=== PATIENT | male | born 1940 | race Caucasian/White ===

== ENCOUNTER 2016-06-23 21:00 | Inpatient (IN) | payer MEDICARE, BC ==
[~2016-06-23] VITALS: Ht 177.8 cm; Wt 106.8 kg
--- NOTE | ~2016-06-23 | HP ---
PATIENT'S NAME: HANNAH RODRÍGUEZ [facility] AGE: 75 Y [address] ROOM: [address] [place], [place] [address] LOCATION: GPCU ADMIT DATE: 06/23/2016 History & Physical DISCHARGE DATE: FAMILY PHYSICIAN: PHYSICIAN, UNKNOWN ATTENDING PHYSICIAN: SAGAR MIRANDA DATE OF SERVICE: CHIEF COMPLAINT: Generalized weakness and deconditioning and failure to thrive as well as an [id number] right upper quadrant pain. HISTORY OF PRESENT ILLNESS: This is a 75-year-old male, who is transferred from the outside facility to here for higher level of care. The story is that the patient for over a year has been complaining of right upper quadrant pain and also has been complaining of worsening fatigue and generalized weakness and failure to thrive for a long time as well. He denies any constipation or diarrhea, and his stools sometimes turn dark, he says that is because he has been taking iron. The patient denies any dyspnea or cough or chest pain, and his complaint is that he has a poor appetite, and has been having weight loss that he could not tell me how many pounds as well as [id number] bilateral lower extremity edema, as well as worsening of the right upper quadrant abdominal pain. Because of all these problems, the patient was seen at the outside facility in [facility], where the patient had a CT abdomen and pelvis without IV contrast performed on June 23, 2016 and showed numerous lung nodules at the lung bases, suspect pulmonary metastasis. Liver is enlarged and mostly replaced with multiple low-density lesions, likely hepatic metastasis. Mild retroperitoneal adenopathy. Portions of the colon appeared thick walled, more focally in the cecum and the rectum, may be colitis. Subtle mass excluded, especially in the cecal region. Minimal ascites. Cholelithiasis. Gallbladder is contracted and thick walled. The patient's blood pressure was also found to be low in the high 90s with MAP in the mid 60s. The patient was given IV fluids bolus and the blood pressure stayed in the low 100s, MAP in the high 60s, and the patient was sent over here for higher level of care. REVIEW OF SYSTEMS: As mentioned in the history of present illness. All other systems reviewed and negative except those mentioned in the history of present illness. PAST MEDICAL HISTORY: 1. Paroxysmal atrial fibrillation, on Coumadin. 2. Reported history of congestive heart failure, I am not quite sure which type, there is no echo and the patient does not know. PATIENT'S NAME: HANNAH RODRÍGUEZ [facility] AGE: 75 Y [address] ROOM: [id number] [place], [place] [address] [facility] ADMIT DATE: 06/23/2016 History & Physical DISCHARGE DATE: FAMILY PHYSICIAN: PHYSICIAN, UNKNOWN ATTENDING PHYSICIAN: SAGAR MIRANDA 3. Depression. 4. Diabetes type 2. 5. Diabetic peripheral neuropathy. 6. Osteoarthritis. 7. Hyperlipidemia. 8. Hypertension. 9. Hypothyroidism. HOME MEDICATIONS: 1. Famotidine 20 mg p.o. b.i.d. 2. Ferrous sulfate 325 mg p.o. daily. 3. Glucosamine and chondroitin 1 capsule p.o. b.i.d. 4. Levothyroxine 75 mcg p.o. daily. 5. Metformin 500 mg p.o. b.i.d. 6. Metolazone 2.5 mg p.o. daily. 7. Multivitamin 1 tablet p.o. daily. 8. Tylenol 500 mg p.o. b.i.d. 9. Tylenol 500 mg p.o. every 6 hours p.r.n. for pain or fever. 10. Coreg 25 mg p.o. b.i.d. 11. Vitamin D 400 units p.o. daily. 12. Vitamin B12 125 mg p.o. daily. 13. Digoxin 125 mcg p.o. daily. 14. Benadryl 25 mg p.o. every night at bedtime p.r.n. for insomnia. 15. Aldactone 25 mg p.o. daily on Monday, Monday, Monday, and Monday. 16. Torsemide 60 mg p.o. every evening. 17. Torsemide 80 mg p.o. every morning. 18. Vitamin C 1 capsule p.o. daily. 19. Coumadin 1 mg p.o. every night at bedtime. Last dose was on June 22, 2016, according to the chart. SOCIAL HISTORY: The patient denies any alcohol or illegal drug or cigarette smoking in the past. PAST SURGICAL HISTORY: The patient denies any surgical history in the past. FAMILY HISTORY: The patient's father from oral cancer from cigarette smoking at advanced age. Mother also from cancer, but he could not remember which type. PHYSICAL EXAMINATION: VITAL SIGNS: At the time of my dictation, temperature 98, heart rate 90, blood pressure 98/60, MAP 68, respiration 14, and saturation 98% on room air. PATIENT'S NAME: HANNAH RODRÍGUEZ [facility] AGE: 75 Y [address] ROOM: [place] [address] [facility] ADMIT DATE: 06/23/2016 History & Physical DISCHARGE DATE: FAMILY PHYSICIAN: PHYSICIAN, UNKNOWN ATTENDING PHYSICIAN: SAGAR MIRANDA Pain 3/10 in the right upper quadrant. GENERAL APPEARANCE: Alert and oriented x3, in no acute distress. HEENT: Pupils equally round and reactive to light. Extraocular muscles intact. Anicteric sclerae. He has some dry blood in both nasal nares. He said that he likes to pick his nose. No active epistaxis. Dry oral mucosa. No oral thrush. NECK: No JVD. No cervical lymphadenopathy. No neck stiffness. RESPIRATORY: Clear. CARDIOVASCULAR: Regular rate and rhythm. Normal S1, S2. No murmurs, no rubs, no gallops. ABDOMEN: Soft. I could feel several palpable masses in the right upper quadrant area, in the liver area, likely from the metastasis. Bowel sounds are present. Mildly tender to palpation in the right upper quadrant. Interestingly, there is no tenderness in the left lower quadrant. No abdominal rigidity. No rebound tenderness. EXTREMITIES: +2 bilateral pitting edema in both lower extremities. He said this is worse than his baseline edema. SKIN: No ulcer. No rash. No cyanosis. NEUROLOGICAL: Grossly nonfocal. MUSCULOSKELETAL: No joint pain, no muscle pain. Range of motion intact. LABORATORY DATA: White blood cells 13.5, hemoglobin 8.7, hematocrit 30, MCV 74.3, platelets 267. Glucose 108, BUN 85, creatinine 1.4, sodium 135, potassium 3.5, chloride 95, CO2 of 22, calcium 7.6, total protein 6.4, albumin 2.0, AST 216, ALT 71, alkaline phosphatase 670, total bilirubin 2.4, direct bilirubin 1.8, phosphorus 4.7, magnesium 1.9, anion gap 21.5, globulin 4.4, GFR 49. INR 4.2, PTT 58. Procalcitonin 2.54. MICROBIOLOGY STUDIES: Blood culture 2 sets obtained and are pending. Urine culture ordered but not yet collected. IMAGING STUDIES: CT abdomen and pelvis without contrast was done at the outside facility on admission, refer to the history of present illness for details. EKG performed at an outside facility on admission showed sinus rhythm, heart rate at 83 beats per minute with occasional PVC, no acute ischemic findings. ASSESSMENT AND PLAN: 1. Severe sepsis, likely secondary to colitis in the cecum or in the rectum: The patient is having severe sepsis with high procalcitonin, leukocytosis, and hypotension, as well as elevated procalcitonin. The source here likely is from the colitis based on the CT abdomen and PATIENT'S NAME: HANNAH RODRÍGUEZ [facility] AGE: 75 Y [address] ROOM: [place] [address] [facility] ADMIT DATE: 06/23/2016 History & Physical DISCHARGE DATE: FAMILY PHYSICIAN: PHYSICIAN, UNKNOWN ATTENDING PHYSICIAN: SAGAR MIRANDA pelvis. CT abdomen and pelvis mentioned about possible colitis in the rectum or in the cecum. On examination, he denies any pain in the right lower quadrant. For now, I will give him IV bolus normal saline over 1 hour and check the blood pressure again to see if he is still hypotensive with MAP less than 65, and I will bolus him more as necessary. His lungs are clear. He is 99% on room air. I am not worried about the volume overload at this point. Severe sepsis with hypotension takes more importance in this case. Antibiotic choice: I will cover him widely with vancomycin as well as Zosyn and also Flagyl. This is a broad coverage given that I want to rule out bacteremia; therefore, I will leave the vancomycin on board, and the Zosyn and also the Flagyl will be the coverage for the colitis and also for bacteremia. UA and urine culture are pending. I will use the severe sepsis protocol by checking all the vital signs on admission and also in 6 hours followed by the severe sepsis protocol. I will consult Gastroenterology in the morning for the possibility of this colitis and also because of the questionable mass in the cecal region that could be colon cancer as the primary source of cancer that causes metastasis to the liver and also to the lungs. I will also consult Hematology-Oncology in the morning for the possibility of primary colon cancer with metastasis to the liver and also to the lungs. The patient will require a CT with contrast of the chest as well as part of the stiles CT in every cancer patient. However, his kidney function is not the best right now with acute kidney injury from the severe sepsis and decreased oral intake. In this case, I will actually change the vancomycin to IV linezolid to not worsen the kidney function, and I will check the renal panel in the morning, and eventually, the patient will require a CT of the chest to better visualize the location and the details of the pulmonary metastasis. The patient will get the p.o. Florastor to prevent Clostridium difficile. Check labs in the morning again. Further plan depends on clinical course. If his condition worsens and require pressor, he will go to ICU. 2. Regarding his history of paroxysmal atrial fibrillation: His INR on admission 4.2. No obvious signs or finding of a bleeding. He is anemic, but this could be from the colon cancer, which of course will give gastrointestinal bleeding. Given that the patient is not actively bleeding, there is no urgency to call GI right now. I am not going to check the fecal occult stool test given that he has a colon mass and likely he will become positive. I will get a GI consult in the morning. I will do a type and screen just in case he would require a transfusion. I will also check iron panel in the morning as well. He is in sinus rhythm right now. I will check 1 set of troponin, CK, CK-MB, and proBNP in the morning. He is also on digoxin. I will get a level in the morning as well. For the diagnosis of colon mass, his INR is 4.2. I will give him 1 dose of p.o. vitamin K 5 mg in case the patient would require a mass biopsy for the diagnosis. Check INR again later today. PATIENT'S NAME: HANNAH RODRÍGUEZ [facility] AGE: 75 Y [address] ROOM: [id number] [place], [place] [address] LOCATION: GPCU ADMIT DATE: 06/23/2016 History & Physical DISCHARGE DATE: FAMILY PHYSICIAN: PHYSICIAN, UNKNOWN ATTENDING PHYSICIAN: SAGAR MIRANDA 3. Regarding his history of congestive heart failure: I am not quite sure which type, there is no echo on file to know. The patient also does not know the details. He is not in heart failure right now. If necessary, echo could be obtained, but at this moment I do not think it is necessary unless he has bacteremia from Gram-positive cocci. 4. Regarding his diabetes type 2: I will give him the sliding scale insulin, NovoLog, before meals and at bedtime with mild dose and titrate as necessary. 5. Acute kidney injury: Likely, it is acute kidney injury; however, I do not have any baseline to compare. In the setting of a severe sepsis and hypotension, likely it is acute kidney injury. Also, he has a poor appetite. He is getting IV fluids bolus right now. I will check the kidney function again in the morning. UA and urine culture are pending. 6. Hypertension: The patient is in severe sepsis with hypotension. Of course, I will hold the blood pressure medication for now. 7. Code status: He is DNR, DNI. 8. Failure to thrive: PT, OT, and also consult Nutrition. 9. Depending on his clinical course, further plan will be formulated. 10. Deep vein thrombosis prophylaxis: He is on compression devices. INR is already supratherapeutic. Time spent in care on the day of admission 60 minutes including chart review, examining and interviewing the patient, addressing all the questions and concerns of the patient, and going over the plan of care with the nurses and also with the patient. Further plan will be decided by the incoming hospitalist who will be taking over the care starting 06/24/16 8AM. SAGAR MIRANDA MD CC/modl /[id number] D: [id number] T: [id number] HISTORY & PHYSICAL
--- NOTE | ~2016-06-23 | CON ---
PATIENT'S NAME: HANNAH RINALDI [facility] AGE: 75 Y [address] ROOM: [place] [address] LOCATION: GICU ADMIT DATE: 06/23/2016 Consultation DISCHARGE DATE: FAMILY PHYSICIAN: Daniel Rice MD ATTENDING PHYSICIAN: SAGAR MIRANDA DATE OF CONSULTATION: 06/24/2016 REFERRING PHYSICIAN: MARITZA LEI MD Dear Dr. Meneses: Thank you for asking me to see Mr. Rinaldi who is a 75-year-old male patient who was recently transferred from [facility]. He has been getting progressively weak for the past 2 years. He has lost almost 25 pounds in weight during that time and has nonspecific discomfort in his abdomen that has been getting progressively worse as well. He was found to have metastatic lung cancer as well as metastatic liver cancer, and primary is unclear and likely to be gastrointestinal at this time. The reason for consultation is he had hypotension, and the concern is whether this is cardiac. He has longstanding history of atrial fibrillation with controlled ventricular response, on Coumadin therapy, as well as history of congestive heart failure. He does not have any significant valvular abnormalities that we know of. There is no prior history of MO. His EKG now does not show any evidence of acute MO. He has not had any chest pains. The patient has history of hypertension, type 2 diabetes, and hyperlipidemia. There is no family history of premature coronary artery disease. He is a nonsmoker. MEDICATIONS: His current list of medications on admission included: 1. Tylenol. 2. Coreg 25 b.i.d. 3. Multivitamin. 4. Vitamin D3. 5. Digoxin 0.125 mg once a day. 6. Famotidine. 7. Ferrous sulfate. 8. Levothyroxine 75 mcg a day. 9. Metformin 500 mg b.i.d. 10. Metolazone 2.5 mg a day. 11. Vitamin C. PATIENT'S NAME: AN[facility] Keli [facility] AGE: 75 Y [address] ROOM: [place] [address] LOCATION: GICU ADMIT DATE: 06/23/2016 Consultation DISCHARGE DATE: FAMILY PHYSICIAN: Daniel Rice MD ATTENDING PHYSICIAN: SAGAR MIRANDA 12. Torsemide 60 mg a day in the morning and 80 mg a day in the afternoon. 13. Cyanocobalamin. 14. Aldactone 25 mg a day. 15. Diphenhydramine. 16. Warfarin 1 mg at bedtime. ALLERGIES: AVOCADO AND CUCUMBER. NO KNOWN DRUG ALLERGIES. PAST MEDICAL HISTORY: 1. History of depression. 2. Diabetic peripheral neuropathy. 3. Osteoarthritis. 4. Hypothyroidism. 5. History of right knee surgery. SOCIAL HISTORY: The patient denies abusing alcohol or tobacco. He has always lived alone. He has been since the age of about 58 or so. He has been losing weight, and his appetite has been poor. FAMILY HISTORY: No premature coronary artery disease. REVIEW OF SYSTEMS: 1. Generalized discomfort. 2. Arthritis. PHYSICAL EXAMINATION: VITAL SIGNS: The patient's blood pressure is in the 80s in the left upper extremity, and it was 106/70 in the right upper extremity. Heart rate was in the 60s and irregular, respirations are 18, and oxygen saturation is 98%. HEENT: Normal. NECK: Supple with no JVD, thyromegaly, lymphadenopathy, or carotid bruit. CARDIAC: PMI is not well located. First and second heart sounds are irregular. There are no added sounds or murmurs. CHEST: Diminished breath sounds in both bases. ABDOMEN: Soft and nontender. EXTREMITIES. 2+ edema. CENTRAL NERVOUS SYSTEM: Grossly intact. ASSESSMENT: 1. Based on the echocardiogram, it is very unlikely that he has cardiogenic shock. 2. Possibly septic shock or shock related to tumor-related tissue PATIENT'S NAME: HANNAH RINALDI [facility] AGE: 75 Y [address] ROOM: [id number] [place] [id number] LOCATION: [facility] ADMIT DATE: 06/23/2016 Consultation DISCHARGE DATE: FAMILY PHYSICIAN: Daniel Rice MD ATTENDING PHYSICIAN: SAGAR MIRANDA destruction. RECOMMENDATIONS: 1. We will try to bring his albumin up a little bit as his albumin is 1.9. 2. Continue IV fluids for resuscitation. 3. Measure blood pressures always in the right upper extremity. 4. Other supportive measures including blood transfusions as needed. 5. Keep mean arterial pressure greater than 65. We will plan on following up in the morning based on how he comes along. In the meantime, we will check his D-dimer and BMP again in the morning. Again, I appreciate this opportunity to participate in the care of Mr. Rinaldi. MD LAUREL NUGENT/gracie /[id number] d: 06/25/16 1124 t: 07/05/16 1234, CONSULTATION REPORT
--- NOTE | ~2016-06-23 | CON ---
PATIENT'S NAME: HANNAH RODRÍGUEZ [facility] AGE: 75 Y [address] ROOM: [place] [address] LOCATION: GPCU ADMIT DATE: 06/23/2016 Consultation DISCHARGE DATE: FAMILY PHYSICIAN: Daniel Rice MD ATTENDING PHYSICIAN: SAGAR MIRANDA DATE OF CONSULTATION: 06/27/2016 REFERRING PHYSICIAN: MARITZA LEI MD LOCATION: [place] [address]. REFERRING PHYSICIAN: Yaya Ferreira MD This is a palliative care referral for goals of care and end-of-life discussion. HISTORY OF PRESENT ILLNESS: This 75-year-old male was transferred from the [facility] with increasing weakness, deconditioning, failure to thrive, and right upper quadrant pain. He had been complaining of right upper quadrant pain, worsening fatigue and weakness, decreased appetite, and a weight loss of about 23 to 25 pounds. He went to the [facility] where he had a CT of the abdomen and pelvis done on June 23, 2016, which showed numerous lung nodules at the lung bases, suspect with pulmonary metastasis. Liver was enlarged and mostly replaced with multiple low-density lesions, likely hepatic metastasis and mild retroperitoneal adenopathy. Portions of the colon appeared thick-walled, more focally in the cecum and rectum, may be colitis, with subtle mass excluded, especially in the cecal region. Currently, the patient denies any abdominal pain. No nausea or vomiting. Very poor appetite, having difficulty eating and swallowing. Had a speech evaluation and was able to take in thickened liquids. Just no appetite. Gets full easily. Denies any shortness of breath. Fatigues very easily. Falls asleep easily in conversation. PAST MEDICAL HISTORY: Paroxysmal atrial fibrillation, on Coumadin; history of congestive heart failure; depression; diabetes, type 2; diabetic peripheral neuropathy; osteoarthritis; hyperlipidemia; hypertension; and hypothyroidism. HOME MEDICATIONS: 1. Famotidine 20 mg b.i.d. 2. Ferrous sulfate 325 mg daily. 3. Glucosamine and chondroitin one capsule b.i.d. 4. Levothyroxine 75 mcg daily. PATIENT'S NAME: HANNAH RODRÍGUEZ [facility] AGE: 75 Y [address] ROOM: [place] [address] LOCATION: GPCU ADMIT DATE: 06/23/2016 Consultation DISCHARGE DATE: FAMILY PHYSICIAN: Daniel Rice MD ATTENDING PHYSICIAN: SAGAR MIRANDA 5. Metformin 500 mg b.i.d. 6. Metolazone 2.5 mg daily. 7. Multivitamin daily. 8. Tylenol 500 mg b.i.d. and 500 mg p.o. every 6 hours p.r.n. pain or fever. 9. Coreg 20 mg p.o. b.i.d. 10. Vitamin D 400 units daily. 11. Vitamin B12 at 100 mg p.o. daily. 12. Digoxin 125 mcg daily. 13. Benadryl 25 mg every night at bedtime p.r.n. insomnia. 14. Aldactone 25 mg on Monday, Monday, Monday, and Monday. 15. Torsemide 60 mg p.o. every evening and 80 mg every a.m. 16. Vitamin C capsule daily. 17. Coumadin 1 mg every night at bedtime. ALLERGIES: NO MEDICATION ALLERGIES. ALLERGIC TO AVOCADO AND CUCUMBER. SOCIAL HISTORY: He was for about 10 years and is . No children. He has 3 sisters; 2 live in [place], 1 lives in [place]. Had been living at home previously and was recently admitted to the [facility] in [place] due to deconditioning and not being able to walk. He is a retired [employer]. No alcohol or smoking history. FAMILY HISTORY: Mother at the age of 47 from cancer. Father had lip cancer, was a smoker, and had heart disease. PAST SURGICAL HISTORY: Right knee surgery in 1999. REVIEW OF SYSTEMS: A 10-point review of systems was done and is negative except as mentioned in the HPI and listed below. GASTROINTESTINAL: Weight loss of 23 to 25 pounds. Poor appetite. Difficulty swallowing. He has had diarrhea since CT scan. He is currently wearing a Depend. PSYCHIATRIC: No history of depression. Positive fatigue and loss of energy. Decreased interest in most activities due to fatigue. He is worried about finances. PHYSICAL EXAMINATION: GENERAL: This is a frail, 75-year-old male. VITAL SIGNS: Temperature 96.5, pulse 84, respirations 16, blood pressure 118/57, and O2 saturation is 96% on 1 L. He is 5 feet 10 inches and weighs PATIENT'S NAME: VODEHNAL, HANNAH D [facility] AGE: 75 Y [address] ROOM: [id number] [place], [place] [address] LOCATION: GPCU ADMIT DATE: 06/23/2016 Consultation DISCHARGE DATE: FAMILY PHYSICIAN: Daniel Rice MD ATTENDING PHYSICIAN: SAGAR MIRANDA 235 pounds with a BMI of 31.0. GENERAL: Alert and oriented. Fatigues easily. Falls asleep during conversation, but does arouse. In no acute distress. SKIN: Warm and dry. Color pale. HEENT: Head: Normocephalic, atraumatic. Sclerae are nonicteric. Conjunctivae are pale, pink. Mouth is pink and moist without exudate. No lesions or white patches. LYMPHATIC: No cervical adenopathy or thyromegaly. RESPIRATORY: Clear and diminished bilaterally. Breath sounds even and regular. CARDIAC: S1 and S2, without murmurs or bruits. 3 to 4+ edema noted in all extremities, non-weeping. NEUROLOGIC: Grossly intact. No focal deficits. MUSCULOSKELETAL: Appropriate range of motion. Decreased strength in upper and lower extremities. EXTREMITIES: No cyanosis or deformities. Palliative Performance Scale is 20%, totally bedbound, unable to do most activities, total care, intake is minimal to sips, conscious level is full with periods of drowsiness. LABORATORY DATA: Sodium 143, potassium 3.0, BUN 39, and creatinine 0.9. Albumin 2.6. Alkaline phosphatase is 308, AST is 169, and ALT is 52. GFR is greater than 60. LDH is 2004. ProBNP is 4212. White count 19.5, hemoglobin 8.2, hematocrit 29.6, and 221,000 platelets. UA showed leukocytes of 100 and wbc's 20 to 50, but might of UA showed no growth. C diff was negative on 06/27. PLAN: 1. Discussion of condition and the patient's knowledge of tests. Met with the patient, his sister Yvette Acuna, and her . The patient has a fair understanding of overall condition, lesions in lungs and liver widely metastatic. They are awaiting path results on biopsy from colon. 2. Discussed the patient's overall condition, not eating, weight loss, dysphagia, overall nutritional status, and decreased strength. Answered questions and concerns on condition and possible options. GOALS OF CARE: 1. The patient and sister would like to talk with the oncologist on path results and possible options relating to the patient's condition, if chemotherapy is an option or not. 2. Go back joiner to home in [place]. Answered questions and concerns on fpc and possibly taking closer to [place] where 2 sisters live. The patient wants to go back to work. Encouraged them to keep a room at [facility]pc. PATIENT'S NAME: HANNAH RODRÍGUEZ [facility] AGE: 75 Y [address] ROOM: [id number] [place] [id number] LOCATION: [facility] ADMIT DATE: 06/23/2016 Consultation DISCHARGE DATE: FAMILY PHYSICIAN: Daniel Rice MD ATTENDING PHYSICIAN: SAGAR MIRANDA 3. Discuss worries and concerns about finances and fpc. 4. Code status and advance directive. The patient is currently a do not resuscitate/do not intubate. Sister Yvette and the patient state they do have an advance directive at the charge entry's office. She will try to get us a copy from the charge entry's office. Gave fax number to [facility] nursing station number. We will continue to support the patient and family, answering questions on condition, hospice, and goals of care. Total time was 60 minutes. Thank you for allowing me to assist this patient and family. ABI DELGADO NP FOR MD NORMAN BEST/gracie /[id number] d: 06/28/16 1354 t: 07/05/16 1202, CONSULTATION REPORT
--- NOTE | ~2016-06-23 | ECHO ---
Transthoracic Echocardiography Report (TTE) Demographics Patient Name HANNAH RODRÍGUEZ Date of Study 06/24/2016 Patient Number [id number] Visit Number [id number] Date of 1940 Room Number G6213 Gender Male Number Age 75 year(s) Referring Zehra Holloway Chief Wharfinger Jelena MARCIAL, RDCS Physician MD Umm Sanchez MD Physician Interpreting Zehra Holloway MD Banking Manager Physician Supervising Ordering Zhera Holloway MD, MD/MLP Physician Nurse Stress Copy Camera Operator Conclusions Contractility Score Summary Normal Left Ventricular contractility was noted. Summary The estimated left ventricular ejection fraction is 60-65%. Mild to moderate concentric left ventricular hypertrophy with normal EF, WM and internal dimensions. Moderately dilated right ventricle. The left atrium is moderately dilated. The right atrium is moderatly dilated. Moderate mitral regurgitation by color Doppler. There is mild aortic regurgitation by color Doppler. Moderate-severe tricuspid regurgitation by color Doppler. There is moderate pulmonary hypertension. The pulmonary pressure (RVSP) is 50 mmHg. Procedure Type of Study TTE procedure:2D Echocardiogram, M-Mode, Doppler , Color Doppler. Procedure Date Date: 06/24/2016 Start: 06:58 PM Study Location: Inpatient Portable Technical Quality: Adequate visualization Indications:Bradycardia. Appropriate Use Criteria: 9 Patient Status: STAT HR: 49 bpm BP: 105/57 mmHg M-Mode/2D Measurements LV Diastolic Dimension: 4.14 cm LV Systolic Dimension: 2.93 cm LV Septum Diastolic: 1.33 cm LV PW Diastolic: 1.26 cm AO Root Dimension: 2.6 cm Cardiac Output: 2.66 l/min AV Cusp Separation: 1.1 cm RV Diastolic Dimension: 3.01 cm LA volume: 71 ml LVOT: 2.2 cm RV Base: 3.49 cm LVOT VTI: 14.3 cm RV Mid: 3.61 cm LV Stroke volume: 54.33 ml TAPSE: 2.11 cm TDI-S': 17 cm/s Doppler Measurements AV Peak Velocity: 2.1 m/s MV Peak E-Wave: 1.47 m/s AV Peak Gradient: 17.64 mmHg MV Peak A-Wave: 0.29 m/s AV Mean Gradient: 11 mmHg MV E/A Ratio: 5.16 LVOT Peak Velocity: 0.72 m/s MV P1/2t: 88 msec AV P1/2t: 881 msec TR Gradient:39.69 mmHg PV Peak Velocity: 0.89 m/s Estimated RAP:10 mmHg PV Peak Gradient: 3.19 mmHg Estimated RVSP: 50 mmHg Estimated PASP: 49.69 mmHg E' Septal Velocity: 0.08 m/s A' Lateral Velocity: 0.05 m/s E' Lateral Velocity: 0.12 m/s Findings Left Ventricle Mild to moderate concentric left ventricular hypertrophy with normal EF ,WM and internal dimensions. Right Ventricle Moderately dilated right ventricle. Left Atrium The left atrium is moderately dilated. Right Atrium The right atrium is moderately dilated. Mitral Valve Moderate to severe mitral annular calcification. Moderate mitral regurgitation by color Doppler. Aortic Valve The aortic valve is moderately sclerotic. There is mild aortic regurgitation by color Doppler. Tricuspid Valve Moderate-severe tricuspid regurgitation by color Doppler. There is moderate pulmonary hypertension. The pulmonary pressure (RVSP) is 50 mmHg. Pulmonic Valve Trivial pulmonic valve regurgitation by color Doppler. Pericardial Effusion No evidence of pericardial effusion. Pleural Effusion No evidence of pleural effusion. Contractility Score LV regional wall motion:(0-Non visualized 1-Normal 2-Hypokinesis 3-Akinesis 4-Dyskinesis 5-Aneurysm) Signature dtt: Amie Shahid dtd: 06/24/16 1858 Physician Self Edit
--- NOTE | ~2016-06-23 | DS ---
PATIENT'S NAME: HANNAH RODRÍGUEZ [facility] AGE: 75 Y [address] ROOM: [place] [address] LOCATION: GPCU ADMIT DATE: 06/23/2016 Discharge Summary DISCHARGE DATE: 06/30/2016 FAMILY PHYSICIAN: Daniel Rice MD ATTENDING PHYSICIAN: Cole Spann PRIMARY DIAGNOSES: 1. Severe sepsis. 2. 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 3. Acute colitis. 4. Acute hypoxic respiratory failure. 5. Paroxysmal atrial fibrillation on long-term anticoagulation with warfarin. 6. Anasarca. 7. Severe protein-calorie malnutrition. 8. Right colon mass, partially obstructive. 9. Cholelithiasis. 10. Diabetes mellitus type 2. 11. Gastroesophageal reflux disease. 12. Coronary artery disease. OPERATIONS/PROCEDURES: CT scan of the chest per PE protocol was performed on 06/25/2016 demonstrating no evidence for pulmonary embolism, but moderate sized bilateral pleural effusions with pulmonary metastatic disease and extensive hepatic metastatic disease noted. Gallstones noted within the gallbladder. HISTORY OF PRESENTING ILLNESS AND REASON FOR ADMISSION: Please refer to the H and P dictated on 06/23/2016. HOSPITAL COURSE: The patient was admitted to the hospital as noted above with a presumptive diagnosis of severe sepsis. He was suspected to have cecal mass based on a CT scan obtained at an outside facility. He was seen and evaluated by Gastroenterology and colonoscopy was recommended. This was performed with a partially obstructing mass. Biopsies were obtained. He was treated with broad-spectrum antibiotic therapy. Blood cultures remained negative over the course of his hospital stay. Clinically, his condition was quite poor from the outset. Based on the imaging findings and his clinical condition, it was felt that metastatic colon cancer was the most likely diagnosis. We did discuss preliminarily options for treatment. Oncology was consulted. He did receive continued supportive cares, but his oral intake was poor. PATIENT'S NAME: HANNAH RODRÍGUEZ [facility] AGE: 75 Y [address] ROOM: [place] [address] LOCATION: GPCU ADMIT DATE: 06/23/2016 Discharge Summary DISCHARGE DATE: 06/30/2016 FAMILY PHYSICIAN: Daniel Rice MD ATTENDING PHYSICIAN: Cole Spann Blood pressures were marginally well controlled and he did continue to receive some IV fluids and intermittent albumin infusions because of significant anasarca. Given the extent of metastases and his poor clinical condition, it was not thought that he would be a good candidate for surgery or any antineoplastic therapy. Eventually, biopsy results returned grade 2 adenocarcinoma of the colon. The case was reviewed once again with Oncology and as expected, it was felt that he was not a good candidate for antineoplastic therapy. Palliative Care was also involved and after some discussion with the patient and his sisters, who provided good social support, it was elected to pursue comfort cares primarily. On 06/30/2016, arrangements were made for him to be transferred to the transitional care unit for continued comfort cares and end-of-life management. DISCHARGE INSTRUCTIONS: Diet: As tolerated. Activity: As tolerated. MEDICATIONS: 1. Milk of magnesia 30 mL p.o. daily p.r.n. 2. Albuterol per nebulizer q.4 hours p.r.n. wheezing or dyspnea. 3. Compazine 25 mg p.r. q.12 hours p.r.n. nausea. 4. Morphine half to 1 mg IV or subcutaneous q.1 hour p.r.n. pain or air hunger and morphine 2.5 to 5 mg p.o. or sublingually with q.1 hour p.r.n. pain or air hunger. 5. Lorazepam 0.5 mg p.o. subcu or IV q.2 hours p.r.n. anxiety or restlessness. 6. Hyoscyamine 0.125 mg p.o. q.4 hours sublingually p.r.n. excess secretions. 7. Haldol 1 mg IV or subcu q.1 hour p.r.n. restlessness. 8. Dulcolax 10 mg p.r. daily p.r.n. 9. Atropine drops 1-2 drops sublingually q.4 hours p.r.n. secretions. 10. Acetaminophen 650 mg p.o. or p.r. q.4 hours p.r.n. pain or fever. FOLLOWUP: He will have continued followup on the transitional care unit by the hospitalist team as well as the palliative care team. CONDITION ON DISCHARGE: Poor. Total time spent on discharge process 45 minutes. MARCIE MELENDEZ MD PATIENT'S NAME: HANNAH RODRÍGUEZ [facility] AGE: 75 Y [address] ROOM: [place] [address] [facility] ADMIT DATE: 06/23/2016 Discharge Summary DISCHARGE DATE: 06/30/2016 FAMILY PHYSICIAN: Daniel Rice MD ATTENDING PHYSICIAN: Cole Spann/gracie /[id number] d: 07/01/16 025 t: 07/13/16 2144, DISCHARGE SUMMARY
--- NOTE | ~2016-06-23 | CON ---
PATIENT'S NAME: HANNAH RODRÍGUEZ [facility] AGE: 75 Y [address] ROOM: [address] [address] LOCATION: GPCU ADMIT DATE: 06/23/2016 Consultation DISCHARGE DATE: FAMILY PHYSICIAN: PHYSICIAN, UNKNOWN ATTENDING PHYSICIAN: SAGAR MIRANDA DATE OF CONSULTATION: 06/24/2016 REFERRING PHYSICIAN: MARITZA LEI MD HOSPITAL CONSULTATION REFERRING PROVIDER: Ole Meneses MD REASON FOR CONSULTATION: Liver lesion, suspected metastatic disease as well as a possible cecal mass. HISTORY OF PRESENT ILLNESS: This is a 75-year-old male, who was recently admitted with generalized weakness, deconditioning, and failure to thrive. The patient does state that over the past year, he has been having vague symptoms of right upper quadrant abdominal pain with worsening fatigue, generalized weakness, as well as weight loss, though unable to quantify the amount of weight loss. The patient also has had significant increase in bilateral lower extremity edema. The patient has also experienced deterioration over the past few months and presented to an outside facility where a CT abdomen and pelvis was completed on 06/23/2016. This did show numerous lung nodules, likely suspicious for pulmonary metastasis. Liver was enlarged with mostly low-density lesions likely hepatic metastasis, mild retroperitoneal adenopathy. The patient's colon also had portions that were thick walled, more focally in the cecum and the rectum suggestive for possible colitis versus cecal mass or region. The patient was also found to be hypotensive and was given IV fluids for stabilization and transferred to [facility] for higher level of care. The patient was seen and examined. He does state that he has had abdominal pain over the past year though cannot detail the characteristics. The patient denies any history of colonoscopy or upper endoscopy. He does complain of generalized weakness as well as noticeable swelling in his extremities; specifically, his bilateral lower extremities. The patient does state that he has had some weight loss though cannot quantify the amount of pounds that he has lost. The patient currently denies any chest pain, chest pressure, shortness of breath, fever, chills, or night sweats. PAST MEDICAL HISTORY: 1. Paroxysmal atrial fibrillation, on Coumadin. PATIENT'S NAME: HANNAH RODRÍGUEZ [facility] AGE: 75 Y [address] ROOM: [id number] [place] [id number] LOCATION: GPCU ADMIT DATE: 06/23/2016 Consultation DISCHARGE DATE: FAMILY PHYSICIAN: PHYSICIAN, UNKNOWN ATTENDING PHYSICIAN: SAGAR MIRANDA 2. History of congestive heart failure. 3. Depression. 4. Diabetes type 2. 5. Diabetic peripheral neuropathy. 6. Osteoarthritis. 7. Hyperlipidemia. 8. Hypertension. 9. Hypothyroidism. PAST SURGICAL HISTORY: 1. No history of upper endoscopy or colonoscopy. 2. He did have right knee surgery in 1999 per the medical records. SOCIAL HISTORY: The patient denies any alcohol, tobacco, or illicit drug use. FAMILY HISTORY: The patient's father from oral cancer. The patient's mother from unknown type of cancer as well. ALLERGIES: AVOCADO AND CUCUMBERS. NO MEDICATION ALLERGIES PER THE PATIENT'S RECOLLECTION. CURRENT MEDICATIONS: Please refer to the medication administration record. REVIEW OF SYSTEMS: A 10-point review of systems was completed. All were negative except for those identified in the history of present illness. PHYSICAL EXAMINATION: GENERAL: A 75-year-old male, lying in bed, who appears to be in no acute distress. VITAL SIGNS: Temperature is 97.7, pulse is 59, respirations of 20, blood pressure 94/54, and oxygen saturation is 98% on room air. SKIN: [place], warm, and dry. No jaundice. HEENT: Head is normocephalic and atraumatic. Pupils are equal, round, and reactive to light. Sclerae are clear. Nonicteric. Oral mucosa is pink and moist. No thyromegaly. NECK: Soft and supple. CARDIOVASCULAR: Regular. Normal S1 and S2. RESPIRATORY: Respirations are even and unlabored. LUNGS: Clear to auscultation. Slightly diminished in the bilateral lower lobes. PATIENT'S NAME: HANNAH RODRÍGUEZ [facility] AGE: 75 Y [address] ROOM: [address] [place] [id number] LOCATION: GPCU ADMIT DATE: 06/23/2016 Consultation DISCHARGE DATE: FAMILY PHYSICIAN: PHYSICIAN, UNKNOWN ATTENDING PHYSICIAN: SAGAR MIRANDA ABDOMEN: Soft, round, and nontender. Bowel sounds positive x4 quadrants. MUSCULOSKELETAL: No muscle weakness or atrophy. EXTREMITIES: No clubbing or cyanosis. 3+ pitting edema noted to bilateral lower extremities. NEUROLOGIC: Grossly nonfocal. LABORATORY DATA AND IMAGING STUDIES: Labs and Diagnostics: Lactate level on admission was 5.2 with a recheck today of 4.0. CPK of 149, troponin is less than 0.040. ProBNP was 3797. White blood cell count of 13.3, hemoglobin of 8.6, hematocrit is 29.0, and platelets of 295,000. Chemistry panel includes a glucose of 98, BUN of 81, creatinine of 1.2, sodium 137, potassium of 3.3, chloride of 97, CO2 of 25, and albumin of 1.9. AST of 224, ALT of 66, and alkaline phosphatase is 638. Total bilirubin of 2.3, direct bilirubin of 1.7, phosphorus of 4.7, and magnesium of 1.9. Hemoglobin A1c was 5.6, INR is 3.4, and prothrombin time of 39.9. Iron studies included iron of 15, TIBC is 136, percent saturation of 13, ferritin of 399.90, TSH was 2.53, and CK-MB was 2.8. CT scan as above. ASSESSMENT AND PLAN: Again this is a pleasant 75-year-old male, who was admitted with severe sepsis, congestive heart failure, failure to thrive, and deconditioning. The patient has been complaining of generalized abdominal discomfort with fatigue, weakness, and weight loss over the past year. CT scan showed likely metastatic pulmonary disease, hepatic disease, as well as some thickening in the patient's colon, specifically in the cecum and the rectum. At this time, this was discussed with Dr. Ole Meneses. We will go forth with recommendations for colonoscopy as the patient denies any history of colonoscopy. The patient was on Coumadin for atrial fibrillation, with the last dose being approximately 2 days ago. He has been given vitamin K, and will receive another dose of vitamin K. A recheck of his INR to be done in the morning prior to procedure as we will go forth with colonoscopy. Suprep will be given in preparation. Further recommendations to be given status post colonoscopy. Thank you for this consult and allowing us to participate in the care of this patient. We will continue to monitor, evaluate, and treat as appropriate. KEVIN ROPER, ASSISTANT [place] ATTORNEY FOR MARITZA LEI MD MMF/modl PATIENT'S NAME: HANNAH RODRÍGUEZ [facility] AGE: 75 Y [address] ROOM: [place] [address] LOCATION: [facility] ADMIT DATE: 06/23/2016 Consultation DISCHARGE DATE: FAMILY PHYSICIAN: PHYSICIAN, UNKNOWN ATTENDING PHYSICIAN: SAGAR MIRANDA /[id number] d: 06/24/16 1228 t: 07/21/16 0735, CONSULTATION REPORT
--- NOTE | ~2016-06-23 | CON ---
PATIENT'S NAME: HANNAH RINALDI [facility] AGE: 75 Y [address] ROOM: G6213 [place] [address] LOCATION: GICU ADMIT DATE: 06/23/2016 Consultation DISCHARGE DATE: FAMILY PHYSICIAN: Daniel Rice MD ATTENDING PHYSICIAN: SAGAR MIRANDA REFERRING PHYSICIAN: MARITZA LEI MD Consult to Dr. Miranda. Hannah Rinaldi is a 75-year-old man with probable metastatic cancer. The history of the present illness is from Mr. Rinaldi who is a discursive and prolix historian; from Mr. Rinaldi's sister and [id number]; the [facility] record; and the records forwarded by our colleagues in [place], [place]. The patient believes he was in his normal state of health until the spring. The patient lives alone in [place], [place]. He had retired for 2 years. The patient was unable to drive due to an injury to the right knee that he sustained in 2010, which caused "my knees were unable to lock up." The patient could walk 50-100 yards before he developed shortness of breath. He has used a walker since the injury in 2010. He had no formal or informal physical therapy, occupational therapy, or exercise program. The patient was capable of self-care. He could shower. He did all his cooking. He did light house work, but did not vacuum or do any lawn work. He generally had 1 brown stool a day. For a year, the patient has experienced low-grade abdominal pain in the right upper quadrant. The patient has felt a lump in this area. The patient finds it hard to lie on his right side. The pain has "stayed pretty level." The pain is not related to eating. The pain may be somewhat positional. The patient has taken some acetaminophen which has helped somewhat. The patient has been anorexic and has lost around 23 pounds. The patient also has noted he had some scybalous stools and fecal incontinence for 3-4 months. The patient has also had some functional urinary incontinence. On 05/23/2016, the patient reports that he "collapsed" and was taken to the hospital, hospitalized for 5 days, and then transferred to the rest home. His condition did not improve in the rest home. He developed insomnia over the last 10 days and has been very weak. The patient lost his voice. The usp informed our colleagues in [place] of his deteriorating condition and the patient was hospitalized in [place] and then transferred to [facility] today for evaluation. When the patient was admitted to [place], his INR was 4.8. The patient's BUN and creatinine were elevated and liver function tests were abnormal. Dede PATIENT'S NAME: HANNAH RINALDI [facility] AGE: 75 Y [address] ROOM: [id number] [place], [place] [address] LOCATION: [facility] ADMIT DATE: 06/23/2016 Consultation DISCHARGE DATE: FAMILY PHYSICIAN: Daniel Rice MD ATTENDING PHYSICIAN: SAGAR MIRANDA APRN-NP, elicited roughly the same history that he reported today. She noted the laboratory abnormalities. Chest x-ray and CAT scan of the abdomen and pelvis were performed. The chest x-ray revealed cardiomegaly. The CAT scan of the abdomen and pelvis revealed numerous lung nodules present in both lungs. There was arterial calcification within the aorta. There was a small pericardial effusion and mitral annular calcification. There was minimal gynecomastia. There was moderate spondylolysis with mild loss of thoracic and lumbar vertebral height. Osteoarthritis was seen at the hips and there was bony fusion across the sacroiliac joint. There were multiple low- density masses replacing much of the hepatic parenchyma. The gallbladder wall was contracted and calcified gallstones were present. There were multiple arterial calcifications in the abdominal wall vessels. The radiologist noted "thick-walled appearance of the rectum and other portions of the colon--- appears slightly thick walled, but also decompressed --- colitis consideration." There was a duodenal diverticulum. The radiologist also reported mild retroperitoneal lymphadenopathy. The colon wall appeared thick compatible with colitis, but the radiologist acknowledged that a small mass could not be excluded in the cecal region. The patient was referred to [facility] and admitted late yesterday. The urinalysis revealed 20-50 wbc's and 5-10 rbc's per high-power field. A procalcitonin was 2.54 ng/mL. [place] white count [place] [address] with 81% neutrophils and 7% lymphocytes, the hemoglobin was 8.6 g/dL, the MCV 74, and the platelets 295,000. The lactate level was 5.2 mEq/L. The potassium was 3.5 mEq/L. The BUN was 85 mg/dL and the creatinine was 1.4 mg/dL with an estimated EGFR of 49 mL/m. The albumin was 2 g/dL, the total bilirubin 2.4 mg/dL, the alkaline phosphatase 670 IU/L, the AST 216 IU/L, and the ALT 71 IU/L with the upper limits of normal being 78. The iron was 18 mcg/dL, the TIBC 136 mcg/dL, and the percentage saturation 13%. The ferritin was elevated at 399.9 ng/mL. TSH was 2.53 u/IU/mL. The proBNP was markedly elevated at 3797 pg/mL. One stool has been tested for Hemoccult and revealed no blood. The patient is seen in consultation. The patient has no personal history of cancer. The patient acknowledges for 2 years he had a black mole on his left shoulder which "comes and goes." This was present at a smallpox vaccine site. The nodule may have been 3/4 of an inch in size at the most and has regressed for about a year. This was not a scab. The patient sought no medical consultation for this. The patient's mother at 47 of pancreatic cancer and was not a tobacco smoker. A maternal aunt was cured at age 55 of breast cancer with bilateral mastectomy, a maternal aunt at age 60 of cancer of the breast, a maternal aunt at age 80 of cancer and type undetermined. His father developed lip PATIENT'S NAME: HANNAH RINALDI [facility] AGE: 75 Y [address] ROOM: [address] [address] LOCATION: [facility] ADMIT DATE: 06/23/2016 Consultation DISCHARGE DATE: FAMILY PHYSICIAN: Daniel Rice MD ATTENDING PHYSICIAN: SAGAR MIRANDA cancer related to sun and tobacco exposure. ACTIVE MEDICAL PROBLEMS, CHRONIC AND DIAGNOSED: 1. Cholelithiasis. 2. Paroxysmal atrial fibrillation noted in 2004. This was converted with electroshock to a normal sinus rhythm and he has apparently been on warfarin since that time. 3. "Congestive heart failure" noted in 2004 and treated since that time. 4. Depression. 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 5. Type 2 diabetes mellitus. It appears this was 1st noted in 2010, but may have resolved with diet and weight loss. The patient has been on no medications for this. The patient's blood sugars were checked at the office and at home if there was a question of a diabetic peripheral neuropathy. 6. 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 The patient has had intraarticular steroids administered to the elbow. 7. Hyperlipidemia. 8. Mild aortic stenosis, aortic regurgitation, and cltr-ol-fvspcvde mitral stenosis on echocardiogram. 9. Essential arterial hypertension. This has not been labile or associated with end-organ damage. 10. Ijep-hu-kvqmpkpu pulmonary hypertension. 11. Hypothyroidism. The patient is unable to recall when or how this was documented. This is listed as a medical problem and he is on levothyroxine sodium. 12. GERD/acid peptic disease. The patient denies this is a problem. He is on an H2 antagonist, but this may be new since he was hospitalized. 13. Atherosclerotic vascular disease with arterial calcifications in the thoracic and abdominal aorta. 14. Duodenal diverticulosis. 15. Subjective decreased auditory acuity. 16. Allergic rhinitis, troublesome in the fall. The patient tries to avoid allergens. 17. (?) Autism spectrum disorder?-? Asperger's syndrome(?). The patient does not respond to social cues as expected. 18. Class I obesity. On 06/23/2016, the BMI 31.1 kg/m2. ACUTE MEDICAL ILLNESSES (RESOLVED), PAST SURGERIES, INJURIES: 1. 1963-incision and drainage of a left arm abscess. 2. 2010-close encounter of the bovine kind leading to a severe injury of the right knee requiring an 11-inch incision. MEDICATIONS: PATIENT'S NAME: HANNAH RINALDI [facility] AGE: 75 Y [address] ROOM: [place] [address] LOCATION: [facility] ADMIT DATE: 06/23/2016 Consultation DISCHARGE DATE: FAMILY PHYSICIAN: Daniel Rice MD ATTENDING PHYSICIAN: SAGAR MIRANDA Upon admission, 1. APAP. 2. Carvedilol 25 mg p.o. b.i.d. 3. Cholecalciferol 400 units q.24 hours. 4. Cyanocobalamin 125 mg p.o. q.24 hours. 5. Digoxin 0.125 mg p.o. daily. 6. Diphenhydramine 25 mg p.o. q.8 hours p.r.n. 7. Famotidine 20 mg p.o. b.i.d. 8. Ferrous sulfate 325 mg p.o. daily. 9. Glucosamine chondroitin. 10. Levothyroxine sodium 0.075 mg p.o. q.24 hours. 11. Metformin 500 mg p.o. b.i.d. 12. Metolazone 2.5 mg p.o. q.24 hours. 13. Multivitamin. 14. Spironolactone 25 mg p.o. q.24 hours. 15. Torsemide 60 mg p.o. q.p.m. and 80 mg p.o. q.a.m. 16. Warfarin sodium 1 mg p.o. q.h.s. 17. Vitamin-C/davis elixir or. ADVERSE REACTIONS TO MEDICATIONS, TRANSFUSIONS, ALLERGIES: None known. TOBACCO: None. ALCOHOL: 1/4 cup of alcohol a week. CAFFEINE: None. FAMILY HISTORY: The patient was born in [place], [place] and graduated an [employer], [place] [employer]. He attended [employer] for 2 years. He served our country in the [employer] from 1961 to 1967. The patient was for around 10 years, from around age 48 to 58, and subsequently . He has no children. He is not currently a buddhism goer. He has 2 sisters in [place], [place] and a sister in [place], [place]. REVIEW OF SYMPTOMS: The patient has had progressive pedal edema. PHYSICAL EXAMINATION: VITAL SIGNS: Pulse 108 and regular, blood pressure 95/50, respiratory rate 16, temperature 96.3, height 70 inches, weight 98.5 kg (217 pounds), and BMI PATIENT'S NAME: HANNAH RINALDI [facility] AGE: 75 Y [address] ROOM: [id number] [place], [place] [address] LOCATION: [facility] ADMIT DATE: 06/23/2016 Consultation DISCHARGE DATE: FAMILY PHYSICIAN: Daniel Rice MD ATTENDING PHYSICIAN: SAGAR MIRANDA 31.1 kg/m2. GENERAL: A well-developed, obese, 75-year-old, male, in no distress. HEENT: Unremarkable. LYMPH NODES: None palpable. SKIN: Davis angiomas. There is no evidence of a hyperpigmented lesion on the left shoulder at the point of his smallpox vaccination. NECK: Right internal jugular line. No JVD or carotid bruits. CHEST: Clear anteriorly. CV: Regular rhythm. No murmurs, bruits, or adventitious sounds. ABDOMEN: The liver has descended to 11.5 cm below the xiphoid process, an 8 cm below the costal margin at the right midclavicular line. The patient has right upper quadrant tenderness to palpation. Bowel sounds are present. GENITAL AND RECTAL: Centeno catheter in place. Not examined. EXTREMITIES: Vertical healed scar over the right knee. The patient has pitting edema to the mid thighs on both sides. The patient has onychomycosis in all the nails. There is hemosiderosis in the feet, compression devices are applied. NEURO: The patient is alert and oriented and can move all 4 extremities. IMPRESSION: 1. A 75-year-old man with 1-year history of right upper quadrant abdominal pain; anorexia; weight loss; progressive pedal edema; palpable hepatomegaly; microcytic anemia; hypoalbuminemia; increased alkaline phosphatase, AST, and total bilirubin; decreased iron saturation, iron, and TIBC; increased ferritin; "thick-walled appearance of the rectum and other portions of the colon ... but colitis consideration;" multiple low- density masses in the liver; and multiple pulmonary nodules. The patient has a family history of multiple cancers and has a history of a left arm mole which was described as dark black on his shoulder that grew and regressed for 2 years before finally regressing a year ago. 2. The patient probably has metastatic cancer in the liver and lung. 3. Given the location of the presumed metastases, the iron deficiency and the iron deficiency anemia, endoscopy studies are warranted. If these are nondiagnostic, a liver biopsy is warranted. However, we need to keep melanoma in mind given the history of a regressing left shoulder mole. We certainly need to keep a primary gastrointestinal malignancy in mind given the prior probabilities and given the iron deficiency anemia. 4. Anemia of chronic inflammation and/or iron-deficiency anemia. RECOMMEND: Diagnostic: 1. Colonoscopy, followed by upper GI endoscopy if the colonoscopy negative. 2. Liver biopsy if endoscopy nondiagnostic. Treatment: PATIENT'S NAME: HANNAH RINALDI [facility] AGE: 75 Y [address] ROOM: G[address] [place], [place] [address] LOCATION: GICU ADMIT DATE: 06/23/2016 Consultation DISCHARGE DATE: FAMILY PHYSICIAN: Daniel Rice MD ATTENDING PHYSICIAN: SAGAR MIRANDA 1. No antineoplastic therapy at this point. Patient education: 1. Discussed what we knew he had and the differential diagnosis. 2. Recommended if he is medically stable, that a colonoscopy be performed; if not, a liver biopsy could be performed. 3. Acknowledged a cancer is our leading concern. JUAREZ MONTALVO MD GKB/modl /[id number] CC: MD Daniel Salmeron MD Atam Mehdiratta, MD d: 06/24/16 2358 t: 06/30/16 1114, CONSULTATION REPORT
[2016-06-23] MEDS ORDERED: TYLENOL EXTRA500 MG PO ×2 (22:18→22:48)
[2016-06-23] MEDS ORDERED: VITAMIN D-40400 UNIT PO (22:21)
[2016-06-23] MEDS ORDERED: CENTRUM SILVER1 TAB PO (22:21)
[2016-06-23] MEDS ORDERED: COREG25 MG PO (22:21)
[2016-06-23] MEDS ORDERED: LANOXIN (DIGI125 MCG PO (22:22)
[2016-06-23] MEDS ORDERED: PEPCID20 MG PO (22:22)
[2016-06-23] MEDS ORDERED: GLUCOSAMINE &1 EAC1 PO (22:26)
[2016-06-23] MEDS ORDERED: IRON325 M1 PO (22:30)
[2016-06-23] MEDS ORDERED: LEVOTHROID(SYN75 MCG PO (22:41)
[2016-06-23] MEDS ORDERED: GLUCOPHAGE500 MG PO (22:42)
[2016-06-23] MEDS ORDERED: TART CHERRY CA1 EACH PO (22:43)
[2016-06-23] MEDS ORDERED: ZAROXOLYN2.5 MG PO (22:43)
[2016-06-23] MEDS ORDERED: DEMADEX20 MG PO (22:44)
[2016-06-23] MEDS ORDERED: DEMADEX20 M1 PO (22:44)
[2016-06-23] MEDS ORDERED: ALDACTONE25 MG PO (22:45)
[2016-06-23] MEDS ORDERED: VITAMIN B-12250 MCG PO (22:45)
[2016-06-23] MEDS ORDERED: BENADRYL25 MG PO (22:46)
[2016-06-23] MEDS ORDERED: COUMADIN **IA1 MG PO (22:47)
[2016-06-24 00:09] LABS: BASOPHIL % 0.1 %; EOSINOPHIL # 0.1 K/uL (0.0-0.5); EOSINOPHIL % 0.8 %; HEMOGLOBIN 8.7 g/dL (11.0-16.0); IMMATURE GRANULOCYTE # 0.1 K/uL (0.0-0.3); IMMATURE GRANULOCYTE % 0.7 %; MCH 21.5 pg (27.0-34.0); MCV 74.3 fl (83.0-98.0); MONOCYTE # 1.4 K/uL (0.0-1.0); MONOCYTE % 10.7 %; MPV 9.1 fl (9.4-12.4); NEUTROPHIL # (ANC) 10.9 K/uL (1.4-9.0); NEUTROPHIL % 80.7 %; NRBC % 0 /100WBC (0-0.00); PLATELET COUNT 267 K/uL (150-450); RBC 4.04 M/uL (3.50-5.50); RDW-CV 20.9 % (11.9-14.6); WBC 13.5 K/uL (4.0-11.0)
[2016-06-24 00:25] LABS: INR - (THERAPEUTIC) 4.2 (0.9-1.1); PROTIME 50.1 SECONDS (9.6-11.1); PTT 58 SECONDS (25-32)
[2016-06-24 00:33] LABS: ANION GAP 21.5 (10.0-19.0); CALCIUM 7.6 mg/dL (8.5-10.5); CREATININE 1.4 mg/dL (0.6-1.3); MAGNESIUM 1.9 mg/dL (1.3-2.6); PHOSPHORUS 4.7 mg/dL (2.5-4.9); POTASSIUM 3.5 mMol/L (3.7-5.1); TOTAL BILIRUBIN 2.4 mg/dL (0.0-1.5); TOTAL PROTEIN 6.4 g/dL (6.0-8.4)
[2016-06-24 02:55] LABS: BILIRUBIN URINE NEGATIVE (NEGATIVE); BLOOD URINE 50 /UL (NEGATIVE); GLUCOSE URINE NEGATIVE (NEGATIVE); KETONE URINE NEGATIVE (NEGATIVE); LEUKOCYTES URINE 100 /UL (NEGATIVE); NITRITE URINE NEGATIVE (NEGATIVE); PROTEIN URINE 15 mg/dL (NEGATIVE); SPEC GRAVITY URINE 1.015 (1.003-1.035); UROBILINOGEN URINE 1 mg/dL (NORMAL)
[2016-06-24 03:12] LABS: COLOR URINE YELLOW (YELLOW); TURBIDITY URINE CLEAR (CLEAR)
[2016-06-24 03:16] LABS: BACTERIA URINE MODERATE (NEGATIVE); WBC URINE 20-50 #/HPF (NEGATIVE)
[2016-06-24 04:17] LABS: ALT 66 IU/L (12-78); ANION GAP 18.3 (10.0-19.0); AST 224 IU/L (10-40); CHLORIDE 97 mMol/L (96-110); CO2 25 mMol/L (22-32); CPK 149 IU/L (35-332); CREATININE 1.2 mg/dL (0.6-1.3); POTASSIUM 3.3 mMol/L (3.7-5.1); TOTAL BILIRUBIN 2.3 mg/dL (0.0-1.5)
[2016-06-24 04:19] LABS: ALBUMIN 1.9 gm/dL (3.5-5.0); ALK PHOS 638 IU/L (33-138); BLOOD UREA NITROGEN 81 mg/dL (6-24); CALCIUM 7.1 mg/dL (8.5-10.5); ESTIMATED GFR (MDRD EQUATION) 59; SODIUM 137 mMol/L (135-145)
[2016-06-24 06:07] LABS: HEMOGLOBIN 8.6 g/dL (11.0-16.0); MCHC 29.7 gm/dL (32.0-36.5); MCV 74.2 fl (83.0-98.0); MPV 9.2 fl (9.4-12.4); RBC 3.91 M/uL (3.50-5.50); RDW-CV 21.2 % (11.9-14.6); WBC 13.3 K/uL (4.0-11.0)
[2016-06-24 06:12] LABS: INR - (THERAPEUTIC) 3.4 (0.9-1.1); PROTIME 39.9 SECONDS (9.6-11.1)
--- NOTE | 2016-06-24 06:33 | NUR ---
Patient admitted to PCU from [place] around 2134 for abdominal pain. Patient lives at assisted in [place] and had been having abdominal pain for approximately [address] scan of abdomen showed lung and liver nodules, suspect metastises. Also elevated lactate and procalcitonin, suspect for sepsis. Patient given IV fluids en route as well as IV Zosyn, vancomycin, and Flagyl. Patient is a full lift at assisted due to falling in May of this year. Significant BLE edema and sores on buttocks. Patent IV to left wrist with good blood return. Patient is alert/oriented x3, answers questions appropriately. Vital signs were stable, with SBP's 90's (which EMS reported were like that in [place]).
--- NOTE | 2016-06-24 06:36 | NUR ---
Significant Event: Patient continues to be alert/oriented x3. SBP's have been 80-90's (Dr. Spann aware). He has received total of 3L NS fluid boluses while on the floor. MAP's have been generally > 65. Other vital signs have been stable and he continues to be on room air. Received Zosyn, Flagyl, and IV KCl. Left wrist IV continues to have great blood return. Patient denies any pain. Centeno in place with 1675 mL out. Follow up: Dr. Biggs to assess patient today. Dietary consult. PT/OT ordered as well.
--- NOTE | 2016-06-24 13:16 | NUR ---
Introduced self and CM role to Boo, his sister and his sisters who were at bedside. Boo tells me that he resides at [facility] in [place]. He was living at home prior to being in and out of the hospital, but it is his ultimate goal to someday return back home. Sister states that he will have to return back to the SNF as he lives at home alone and he was barely getting around at the SNF so home isn't even an option at this time. Boo tells me that he wasn't really walking at the SNF, they were using a full lift on him or they would put him in the wheelchair to move him around. As I was in visiting with Boo and his family, RN Patrick came in and let us know that they were going to be moving him to ICU due to BP issues. I let Boo and family know that I would continue to follow when he was down on ICU floor and I would visit with them again as discharge got closer. All were in agreement with this plan. Will continue to follow and assist. Plan for return to [facility] in [place].
--- NOTE | 2016-06-24 14:04 | NUR ---
Patient A/O x 3. Full lift. Patient states he has not walked since May 23. Hypotensive with SBP 70-90's. Maps 57-60's. Afebrile. HR's 50-60's. O2 saturations upper 90's on room air. Lung sounds clear and diminished. Bowel sounds active. Last BM prior to transfer at 1330. Stool antoine and soft. Not loose. Sent hematest, but too formed for cdiff sample. Centeno patent with 725 ml UOP prior to transfer. Bilateral lower leg edema. Heels elevated off bed at all times. Open areas to buttocks. Turn q2h. Patient very hesitent to turn because he states his back is only comfortable when he is laying "square on his back". L)FA PIV with NS infusing at 70 ml/hr. Receiving IV antibiotics. Patient transferred to ICU at approximately 1345 for blood pressure support and severe sepsis. Report given to WEATHER REPORTERRUTH ANN Dickey. No other questions at time of transfer. Douglas VALLECILLO 06/24/16 1345
--- NOTE | 2016-06-24 16:25 | NUR ---
PT A/O, ON ROOM AIR, A FIB C BBB. PT STARTED ON LEVOPHED, WHICH IS MAXED OUT. PT CONTINUES ON FLAGYL AND ZOSYN. CENTRAL LINE PLACED BY DR. MERAZ. DR MONTALVO CONSULTED. NORMAL SALINE AT 70 ML/H. LAST ACCUCHECK 204, 2 UNITS OF INSULIN GIVEN.
[2016-06-24 20:12] LABS: CPK 142 IU/L (35-332)
[2016-06-25 01:52] LABS: CPK 136 IU/L (35-332)
--- NOTE | 2016-06-25 04:54 | NUR ---
Significant Event: Patient AOx3. Becomes agitated and refuses turns despite many explainations of benefits. Weakness noted throughout. Afib, 50-70s. BP stable currently on 0.14mcg/kg/min of levophed. Pulses thready throughout, edema noted. Afebrile. Lung sounds clear and diminished on room air. Bowel sounds active, firmness noted in RUQ and epigastric areas. BMx2, loose and green, CDIFF results (-). Centeno intact, adequate UOP with sediment noted. Skin abnormalities noted. R)IJ intact with levophed infusing. R)wrist PIV intact with NS infusing. Follow up: Wean levophed
[2016-06-25 05:23] LABS: ALBUMIN 2.6 gm/dL (3.5-5.0); ALT 60 IU/L (12-78); AST 205 IU/L (10-40); CHLORIDE 102 mMol/L (96-110); CO2 23 mMol/L (22-32); CREATININE 0.9 mg/dL (0.6-1.3); ESTIMATED GFR (MDRD EQUATION) > 60; SODIUM 140 mMol/L (135-145)
[2016-06-25 05:31] LABS: ALK PHOS 481 IU/L (33-138); ANION GAP 17.9 (10.0-19.0); BLOOD UREA NITROGEN 56 mg/dL (6-24); CALCIUM 7.1 mg/dL (8.5-10.5); POTASSIUM 2.9 mMol/L (3.7-5.1); TOTAL BILIRUBIN 3.3 mg/dL (0.0-1.5)
[2016-06-25 05:49] LABS: BASOPHIL % 0.1 %; EOSINOPHIL # 0.4 K/uL (0.0-0.5); EOSINOPHIL % 2.6 %; HEMATOCRIT 27.5 % (37.0-53.0); IMMATURE GRANULOCYTE # 0.1 K/uL (0.0-0.3); IMMATURE GRANULOCYTE % 0.8 %; LYMPHOCYTE % 6.4 %; MCH 21.4 pg (27.0-34.0); MCV 76.4 fl (83.0-98.0); MONOCYTE # 1.9 K/uL (0.0-1.0); MONOCYTE % 11.8 %; MPV 9.6 fl (9.4-12.4); NEUTROPHIL # (ANC) 12.4 K/uL (1.4-9.0); NEUTROPHIL % 78.3 %; NRBC % 0 /100WBC (0-0.00); PLATELET COUNT 288 K/uL (150-450); RDW-CV 21.1 % (11.9-14.6); WBC 15.8 K/uL (4.0-11.0)
[2016-06-25 05:55] LABS: HEMOGLOBIN 7.7 g/dL (11.0-16.0); INR - (THERAPEUTIC) 1.8 (0.9-1.1); PROTIME 20.1 SECONDS (9.6-11.1)
[2016-06-25 08:59] LABS: CPK 130 IU/L (35-332)
--- NOTE | 2016-06-25 17:37 | NUR ---
Significant Event: Patient has had trouble getting comfortable. It has been better this afternoon. Morphine given x1 for generalized sorness. He has napped off and on today. CT scan of chest was done. Levophed was weaned off so a colonscopy can be done. Go Lytely will be started this evening and Colonoscopy done tomorrow. Follow up: Colonoscopy tomorrow
[2016-06-25 18:17] LABS: HEMATOCRIT 28.7 % (37.0-53.0); HEMOGLOBIN 8.1 g/dL (11.0-16.0)
[2016-06-26 00:47] LABS: HEMATOCRIT 29.1 % (37.0-53.0); HEMOGLOBIN 8.1 g/dL (11.0-16.0)
[2016-06-26 05:09] LABS: ALBUMIN 2.7 gm/dL (3.5-5.0); ALT 57 IU/L (12-78); ANION GAP 18.5 (10.0-19.0); AST 185 IU/L (10-40); BLOOD UREA NITROGEN 39 mg/dL (6-24); CHLORIDE 107 mMol/L (96-110); CO2 22 mMol/L (22-32); CREATININE 0.8 mg/dL (0.6-1.3); ESTIMATED GFR (MDRD EQUATION) > 60; POTASSIUM 3.5 mMol/L (3.7-5.1); SODIUM 144 mMol/L (135-145); TOTAL PROTEIN 5.9 g/dL (6.0-8.4)
[2016-06-26 05:10] LABS: ALK PHOS 449 IU/L (33-138); TOTAL BILIRUBIN 4.5 mg/dL (0.0-1.5)
[2016-06-26 05:21] LABS: INR - (THERAPEUTIC) 1.8 (0.9-1.1); PROTIME 19.5 SECONDS (9.6-11.1)
[2016-06-26 05:27] LABS: BASOPHIL % 0.1 %; EOSINOPHIL # 0.1 K/uL (0.0-0.5); EOSINOPHIL % 0.5 %; HEMATOCRIT 29.8 % (37.0-53.0); HEMOGLOBIN 8.3 g/dL (11.0-16.0); IMMATURE GRANULOCYTE # 0.2 K/uL (0.0-0.3); IMMATURE GRANULOCYTE % 1.1 %; LYMPHOCYTE # 1.1 K/uL (0.8-4.0); LYMPHOCYTE % 5.9 %; MCH 21.7 pg (27.0-34.0); MCHC 27.9 gm/dL (32.0-36.5); MONOCYTE # 2.2 K/uL (0.0-1.0); MONOCYTE % 12.2 %; MPV 9.6 fl (9.4-12.4); NEUTROPHIL # (ANC) 14.6 K/uL (1.4-9.0); NEUTROPHIL % 80.2 %; NRBC % 0 /100WBC (0-0.00); PLATELET COUNT 278 K/uL (150-450); RBC 3.82 M/uL (3.50-5.50); RDW-CV 21.8 % (11.9-14.6)
[2016-06-26 05:37] LABS: WBC 18.1 K/uL (4.0-11.0)
--- NOTE | 2016-06-26 06:48 | NUR ---
Significant Event: Pt is alert and oriented x3. Does make some confused comments at times. Pupils are equal and reactive. Moves all extremities spontaneously and to command. Generalized weakness. 3-4+ edema in the upper and lower extremities. SBP's have been in the 90's this shift. Bowel prep was started this shift and a Flexi seal was put into place. He has had a large amount of output. Centeno in place, but urine has been leaking around it this shift. R) IJ in place, and 1 PIV. Follow up: Colonoscopy today.
--- NOTE | 2016-06-26 12:15 | NUR ---
Patient went to Endoscopy to have a colonoscopy done at 0805 this am. He transferred straight to PCU post procedure.
[2016-06-26 13:12] LABS: HEMATOCRIT 29.1 % (37.0-53.0)
--- NOTE | 2016-06-26 17:21 | NUR ---
Significant Event: Patient A/o x 3. Full lift. Turn q2h. Sore to coccyx and buttocks reddened. Patient transffered from ICU this morning. Off levophen since yesterday afternoon. SBP were in the 90's with MAP's >65 until about 1500. Gave 1 dose of Albumin after colonoscopy today, and now giving 2nd dose due to SBP and MAP's. NS infusing at 70 ml/hr. Unable to wean to RA after procedure and continues on 1L O2. Lung sounds slightly coarse in the bases. Continues on IV antibiotics. R)IJ dressing and caps changed. Tubing changed. Incontinent of stool x 3. Centeno catheter with only 110 ml out this shift. MD aware. Denies pain or discomfort. Follow up: Continue as per plan of care. Possibly consider palliative care consult tomorrow??
--- NOTE | 2016-06-27 05:47 | NUR ---
Significant Event: Patient alert and oriented x 3, denied pain and shortness of breath throughout shift. Patient on o2 via NC, currently at 1 L. POA to arrive today and discuss options with Dr. Patient gonsales leaking heavily at beginning of shift, order to replace obtained, new gonsales anchored and draining without issue. 450 ml yellow urine out of new gonsales, minimal leaking around gonsales since replacement inserted. Incont of stool x 1, pt denies control of BM when in happened. slept throught shift off and on, able to use call light and communicate needs. Follow up: continue to monitor per POC.
[2016-06-27 07:00] LABS: BASOPHIL % 0.1 %; EOSINOPHIL # 0.3 K/uL (0.0-0.5); EOSINOPHIL % 1.6 %; HEMATOCRIT 29.6 % (37.0-53.0); HEMOGLOBIN 8.2 g/dL (11.0-16.0); IMMATURE GRANULOCYTE # 0.2 K/uL (0.0-0.3); IMMATURE GRANULOCYTE % 1.1 %; LYMPHOCYTE # 1.1 K/uL (0.8-4.0); LYMPHOCYTE % 5.4 %; MCH 22.2 pg (27.0-34.0); MCHC 27.7 gm/dL (32.0-36.5); MONOCYTE # 1.7 K/uL (0.0-1.0); MONOCYTE % 8.5 %; MPV 9.2 fl (9.4-12.4); NEUTROPHIL # (ANC) 16.3 K/uL (1.4-9.0); NEUTROPHIL % 83.3 %; NRBC % 0 /100WBC (0-0.00); RDW-CV 21.9 % (11.9-14.6)
[2016-06-27 07:01] LABS: PLATELET COUNT 221 K/uL (150-450); WBC 19.5 K/uL (4.0-11.0)
[2016-06-27 07:07] LABS: PROTIME 24.2 SECONDS (9.6-11.1)
[2016-06-27 07:12] LABS: INR - (THERAPEUTIC) 2.2 (0.9-1.1)
[2016-06-27 07:19] LABS: ALBUMIN 2.6 gm/dL (3.5-5.0); ALK PHOS 308 IU/L (33-138); ALT 52 IU/L (12-78); AST 169 IU/L (10-40); BLOOD UREA NITROGEN 39 mg/dL (6-24); CHLORIDE 106 mMol/L (96-110); CO2 23 mMol/L (22-32); CREATININE 0.9 mg/dL (0.6-1.3); ESTIMATED GFR (MDRD EQUATION) > 60; SODIUM 143 mMol/L (135-145); TOTAL BILIRUBIN 4.2 mg/dL (0.0-1.5); TOTAL PROTEIN 5.5 g/dL (6.0-8.4)
--- NOTE | 2016-06-27 10:51 | NUR ---
A-NUTRITION F/U 06/26 TRANSFERED OUT OF ICU AFTER COLONSCOPY. COLONSCOPY SHOWED A MASS, PER CHART REVIEW. POA WILL ARRIVE TODAY TO MAKE SOME DECISIONS RE: POC D/T METASTATIC CA LUNG & LIVER CA DX; ORIGINAL ORIGIN UNKNOWN, BUT SUSPECT GI, PER MD REPORT. SORE TO COCCYX AND BUTTOCKS ARE REDDENED. 3-4+ EDEMA TO BILATERAL UPPER AND LOWER EXTREMITIES. LABS: NA 143, K+ 3.0, GLU 3.0, BUN 39, MIXER ATTENDANT 0.9, ALB 2.6 DIET RX: CLEAR LIQUIDS TO START AT LUNCH TODAY. EST NUTR NEEDS: [id number] KCALS AND 97-116 GM PROTEIN D-AT NUTRITION RISK W/INADEQUATE INTAKE OF NUTRIENTS R/T DECREASED APPETITE, NPO STATUS, CLEAR LIQUID DIET RX AEB INTAKE RECORDS, ADMIT ASSESSMENT. I-START ENSURE ENLIVE TID W/MEALS TO PROVIDE ADDITIONAL NUTRIENTS M/E-GOAL: PT WILL TOLERATE CLEAR LIQUIDS WITHOUT DIFFICULTY 1)F/U DIET RX, PO INTAKE, SUPPLEMENT, AND POC IN 2-3 DAYS 2)ASSIST NEEDED
--- NOTE | 2016-06-27 12:48 | NUR ---
Called/faxed an update to Mark at [facility] in [place]. JurgenFRANCISCA, states that they will accept back when he is ready to come back to them. In the event that he would need to come back on Hospice, Jurgen tells me that they contract with both [facility] and [facility] so family can go with either one of those. I let Jurgen know that we would continue to keep them updated and when he is ready to come back to them I would let them know. Jurgen was fine with this, his number is [phone] for any future needs. Per RN, family is here in the room, but doctor hasn't rounded yet. She thinks they are going to order a pallative care consult to see what the plan/goal is for dismissal. Let her know to keep me updated and I would continue to follow and assist. Plan for return back to [facility] when ready to dismiss.
--- NOTE | 2016-06-27 17:11 | NUR ---
Significant Event: VSS AND 1L/NC. AFEBRILE. SBPS 90S-110S. DENIES NEED FOR PAIN MEDICATION. IV KCL INFUSED. RT)IJ TRIPLE LUMEN FLUSHES WELL WITH GOOD BLOOD RETURN. IV ABX CONTINUE. IVF CHANGED TO D5 1/2 NS. DECADRON X1 GIVEN. VILLALPANDO PATENT WITH 450 MLS UOP. REPOSITIONED Q2H AND PRN. ST CONSULTED AND BEDSIDE SWALLAW EVAL DONE PER PT C/O OF DIFFICULTY SWALLOWING; ORDER FOR NECTAR THICKENED FLUIDS. TAKING IN ONLY LIQUIDS, MOSTLY ROSA MIST AND WATER. PALLIATIVE CARE CONSULTED AND UP TO VISIT WITH THE PATIENT AND HIS SISTER; AWAITING BX RESULTS AND FURTHER RECOMMENDATIONS PER ONCOLOGY. Follow up: CONTINUE PLAN OF CARE.
[2016-06-28 03:18] LABS: ANION GAP 18.6 (10.0-19.0); BLOOD UREA NITROGEN 39 mg/dL (6-24); CALCIUM 7.9 mg/dL (8.5-10.5); CHLORIDE 105 mMol/L (96-110); CO2 21 mMol/L (22-32); ESTIMATED GFR (MDRD EQUATION) > 60; POTASSIUM 3.6 mMol/L (3.7-5.1); SODIUM 141 mMol/L (135-145)
--- NOTE | 2016-06-28 04:26 | NUR ---
Significant events: Pt A/Ox3, slow to respond at times. VSS, SBP 91-106, afebrile, HR 70-80's. No complaints of pain. Repositioned Q2H. Centeno in place-350mL out. IV antibiotics continue, D5 1/2NS to R) IJ. 3-4+ edema. Small BM this shift. Follow up: Palliative/hospice to make plan for discharge once oncology reviews pending biopsy results, pt will be able to go back to [place] SNF upon discharge.
[2016-06-28 04:27] LABS: BASOPHIL % 0.1 %; EOSINOPHIL # 0.1 K/uL (0.0-0.5); EOSINOPHIL % 0.3 %; HEMATOCRIT 32.4 % (37.0-53.0); IMMATURE GRANULOCYTE # 0.2 K/uL (0.0-0.3); IMMATURE GRANULOCYTE % 0.9 %; LYMPHOCYTE # 0.8 K/uL (0.8-4.0); LYMPHOCYTE % 4.4 %; MCH 22.1 pg (27.0-34.0); MCHC 27.8 gm/dL (32.0-36.5); MCV 79.6 fl (83.0-98.0); MONOCYTE # 1.3 K/uL (0.0-1.0); MONOCYTE % 6.9 %; MPV 9.5 fl (9.4-12.4); NEUTROPHIL # (ANC) 16.4 K/uL (1.4-9.0); NEUTROPHIL % 87.4 %; NRBC % 0 /100WBC (0-0.00); PLATELET COUNT 215 K/uL (150-450); RBC 4.07 M/uL (3.50-5.50); RDW-CV 22.2 % (11.9-14.6)
[2016-06-28 04:47] LABS: WBC 18.7 K/uL (4.0-11.0)
[2016-06-28 04:54] LABS: INR - (THERAPEUTIC) 2.1 (0.9-1.1); PROTIME 23.1 SECONDS (9.6-11.1)
--- NOTE | 2016-06-28 16:47 | NUR ---
Significant Event: Alert and oriented X 3. Slow to respond and short of breath to complete a sentence. Room Air. SBP 100's. HR 70's. 3+ - 4+ generalized edema. IJ to left side of neck, flushes well with good blood return. Ate 100% of breakfast, refused lunch and dinner. Centeno intact 200 ml out this shift. Lower legs venous staining, backsides slightly darker. Resting in bed, refuses Q2 repositioning. Sisters will be here tomorrow. Pleasant and cooperative with cares. Follow up:
[2016-06-29 03:30] LABS: ANION GAP 19.6 (10.0-19.0); CALCIUM 7.9 mg/dL (8.5-10.5); CREATININE 1.4 mg/dL (0.6-1.3); POTASSIUM 3.6 mMol/L (3.7-5.1)
[2016-06-29 03:52] LABS: BASOPHIL % 0.1 %; EOSINOPHIL # 0.3 K/uL (0.0-0.5); EOSINOPHIL % 1.1 %; HEMATOCRIT 34.4 % (37.0-53.0); HEMOGLOBIN 9.5 g/dL (11.0-16.0); IMMATURE GRANULOCYTE # 0.3 K/uL (0.0-0.3); IMMATURE GRANULOCYTE % 1.2 %; LYMPHOCYTE # 0.8 K/uL (0.8-4.0); LYMPHOCYTE % 3.4 %; MCH 22.4 pg (27.0-34.0); MCHC 27.6 gm/dL (32.0-36.5); MCV 81.1 fl (83.0-98.0); MONOCYTE # 1.9 K/uL (0.0-1.0); MONOCYTE % 7.9 %; MPV 9.2 fl (9.4-12.4); NEUTROPHIL # (ANC) 20.5 K/uL (1.4-9.0); NEUTROPHIL % 86.3 %; NRBC % 0.2 /100WBC (0-0.00); PLATELET COUNT 216 K/uL (150-450); RBC 4.24 M/uL (3.50-5.50)
[2016-06-29 03:59] LABS: INR - (THERAPEUTIC) 2.6 (0.9-1.1); PROTIME 30.1 SECONDS (9.6-11.1); WBC 23.8 K/uL (4.0-11.0)
--- NOTE | 2016-06-29 10:53 | NUR ---
1000 Call from Pallative Care RN, states that Boo has been declining and she is going to talk with him and his sisters today at 1300 to see if they are ok with him switching to EOL/Comfort Cares. She wanted to know if they switched him to that if we could still get him to TCU as she knows that family was wanting to keep him here if at all possible. I let Yumiko know I would call TCU admission phone and see if they would be willing to accept either later this afternoon or tomorrow morning. I then called and talked with Ivette, she states that they would have a bed open for him most likely, but she wanted an update after Yumiko met with pt and family this afternoon and then she would give me her final answer. I let her know I would update her as soon as I knew what came about in the family meeting. vIette was fine with this. Orders printed, packet started and ID Screen is complete and in the packet. Will continue to follow and assist.
[2016-06-29 11:51] LABS: ALBUMIN 2.3 gm/dL (3.5-5.0); TOTAL BILIRUBIN 4.3 mg/dL (0.0-1.5); TOTAL PROTEIN 5.5 g/dL (6.0-8.4)
--- NOTE | 2016-06-29 14:21 | NUR ---
PT ON HOLD FOR TX THIS DATE SECONDARY TO DECLINE. PT FAMILY MEETING WITH PALLIATIVE CARE.
--- NOTE | 2016-06-29 16:00 | NUR ---
Significant Event: Pt very short of breath, cannot speak full sentences, tachypneic at times, meds held this am as pt couldn't swallow well even water. SBP down 80s, 250ml NS bolus given this am which helped. Albumin finished up. Pt so very edematous. Few antibiotics given today, then change to comfort cares. Yumiko with palliative here. Dr Biggs also talks to family/pt. 02 applied 2liters 02 sat 87, dr told. Pt takes in small amt fluids today. Follow up:
--- NOTE | 2016-06-30 05:41 | NUR ---
Significant Event:PT ON COMFORT CARES.TELE REMOVED. R IJ REMAINS INTACT. ORAL CARES DONE. VILLALPANDO INTACT. DENIES PAIN. ABLE TO VERBALIZE SOME NEEDS BUT HARD TO UNDERSTAND AT TIMES. Follow up:TRANSFER TO TCU
--- NOTE | 2016-06-30 08:40 | NUR ---
Significant Event: pt on comfort cares. Pt tries to speak and can say no for pain. Pt had large bm last this early am. Pt edematous all over body, carmen wraps to lower legs. RIJ intact. Centeno intact scant uop. 02 2liters. Respirations steady and adequate. No tele. Pt sisters here yest and coming late am today, and one from [place]. Follow up:
== END 2016-06-30 09:45 | DRG 871 ==
LOC: G3N 21:44 → UNDOADMIN 21:44 → GICU 21:51 → GPCU 21:51 → GICU 06-24 13:21 → GPCU 06-26 11:31
PROVIDERS: Family Medicine; Internal Medicine Hematology & Oncology; Internal Medicine Interventional Cardiology; ADMIT Internal Medicine
PROC: 3E033XZ Introduction of Vasopressor into Peripheral Vein, Percutaneous Approach (ICD-10-PCS; 2016-06-24)
PROC: 0DBF8ZX Excision of Right Large Intestine, Via Natural or Artificial Opening Endoscopic, Diagnostic (ICD-10-PCS; principal; 2016-06-26)
DX: A41.9 Sepsis, unspecified organism (principal); R65.21 Severe sepsis with septic shock; J96.01 Acute respiratory failure with hypoxia; E43 Unspecified severe protein-calorie malnutrition; N17.9 Acute kidney failure, unspecified; C78.00 Secondary malignant neoplasm of unspecified lung; C78.7 Secondary malignant neoplasm of liver and intrahepatic bile duct; I48.0 Paroxysmal atrial fibrillation; R13.10 Dysphagia, unspecified; I50.22 Chronic systolic (congestive) heart failure; C18.9 Malignant neoplasm of colon, unspecified; Z51.5 Encounter for palliative care; Z79.01 Long term (current) use of anticoagulants; R62.7 Adult failure to thrive; E11.42 Type 2 diabetes mellitus with diabetic polyneuropathy; F32.9 Major depressive disorder, single episode, unspecified; E78.5 Hyperlipidemia, unspecified; I10 Essential (primary) hypertension; E03.9 Hypothyroidism, unspecified; E66.9 Obesity, unspecified; Z68.31 Body mass index [BMI] 31.0-31.9, adult; K52.9 Noninfective gastroenteritis and colitis, unspecified; K21.9 Gastro-esophageal reflux disease without esophagitis; I25.10 Atherosclerotic heart disease of native coronary artery without angina pectoris
CPT/HCPCS: J0610; J0692; J1100; J1644; J2020; J2270; J2543; J3010; J3480; J7030; J7040; J7050; J7060; P9045; P9047

== ENCOUNTER 2016-06-30 09:55 | Inpatient (IN) | payer MEDICARE, BC ==
[~2016-06-30] VITALS: Ht 177.8 cm; Wt 116.0 kg
--- NOTE | ~2016-06-30 | DS ---
PATIENT'S NAME: HANNAH RODRÍGUEZ [facility] AGE: 75 Y [address] ROOM: [address] [place], [place] [address] LOCATION: [facility] ADMIT DATE: 06/30/2016 Discharge Summary DISCHARGE DATE: 07/01/2016 FAMILY PHYSICIAN: Daniel Rice MD ATTENDING PHYSICIAN: Jony Swift V Note This is also a discharge summary for Transitional Care Unit stay. SUMMARY OF STAY: This was a 75-year-old male, who was transferred to the [facility] Transitional Care Unit under Hospice. 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 It was subsequently deemed that the patient would not be getting any acute treatments and he was admitted to Hospice on the Transitional Care Unit. He here on July 01, 2016, after a 2-day stay. MD SONYA CA/gracie /[id number] d: 07/22/16 0145 t: 08/09/16 0427, DISCHARGE SUMMARY
[~2016-06-30 09:55] MED LIST: ALDACTONE25 MG PO; BENADRYL25 MG PO; CENTRUM SILVER1 TAB PO; COREG25 MG PO; COUMADIN **IA1 MG PO; DEMADEX20 M1 PO; DEMADEX20 MG PO; GLUCOPHAGE500 MG PO; GLUCOSAMINE &1 EAC1 PO; IRON325 M1 PO; LANOXIN (DIGI125 MCG PO; LEVOTHROID(SYN75 MCG PO; PEPCID20 MG PO; TART CHERRY CA1 EACH PO; TYLENOL EXTRA500 MG PO; VITAMIN B-12250 MCG PO; VITAMIN D-40400 UNIT PO; ZAROXOLYN2.5 MG PO
--- NOTE | 2016-06-30 14:50 | NUR ---
D: Nursing Admission Summary From PCU I: Nursing interventions provided to support the patient's individual plan of care R: MOBILITY-- PATIENT IS 2 ASSIST FULL LIFT. CAN MOVE LIMBS SPONTANEOUSLY, BUT VERY LITTLE STRENGTH. NUTRITION-- DIET TOLERATED. NOT REALLY EATING MUCH. IS 1:1 MEAL ASSIST, WHICH FAMILY USUALLY DOES. SKIN/INCISIONS/WOUNDS-- REDDENED BUTTOCKS, UNBLANCHABLE HEELS THAT ARE PURPLE AND BLACK. SKIN IS DOUGHY FROM EDEMA, TURN EVERY 2 HOURS. PATIENT LIKES TO BE SITTING UP MUCH POSSIBLE TO HELP BREATHING. SELF CARES-- TOTAL DEPENDENT. BOWEL/BLADDER-- RESPIRATORY-- PAIN-- PSYCHOSOCIAL-- COGNITION-- SPECIAL NEEDS-- BLEEDING-- SENSORY IMPAIRMENTS/DENTAL NEEDS: TEACHING NEEDS-- INFECTION CONCERNS: RISK FOR ELOPEMENT: NEED FOR BED/MOVEMENT ALARM: DISMISSAL PLANS: Other: P: Current plan of care reviewed and updated
--- NOTE | 2016-06-30 14:53 | NUR ---
D: Nursing Admission Summary From PCU I: Nursing interventions provided to support the patient's individual plan of care R: MOBILITY-- PATIENT IS 2 ASSIST FULL LIFT. CAN MOVE LIMBS SPONTANEOUSLY, BUT VERY LITTLE STRENGTH. NUTRITION-- DIET TOLERATED. NOT REALLY EATING MUCH. IS 1:1 MEAL ASSIST, WHICH FAMILY USUALLY DOES. SKIN/INCISIONS/WOUNDS-- REDDENED BUTTOCKS, UNBLANCHABLE HEELS THAT ARE PURPLE AND BLACK. SKIN IS DOUGHY FROM EDEMA, TURN EVERY 2 HOURS. PATIENT LIKES TO BE SITTING UP MUCH POSSIBLE TO HELP BREATHING. SELF CARES-- TOTAL DEPENDENT. BOWEL/BLADDER-- VILLALPANDO PRESENT FOR COMFORT CARES. INSERTED 06/26/16. PATIENT CAN BE INCONTINENT OF BOWELS WELL. RESPIRATORY--PATIENT IS ON OXYGEN FOR COMFORT AT THIS TIME. RANGES FROM 2-4 LITERS USUALLY. PAIN--PATIENT HAS A HARD TIME VOICING WHAT HE NEEDS, CAN BE IN MORE AIR HUNGER THAN PAIN, HAS BEEN GETTING IV MORPHINE PRN THROUGH HIS TRIPLE LUMEN RIGHT IJ. PSYCHOSOCIAL-- PATIENT HAS 3 DAUGHTERS WHO HAVE ALL BEEN HERE. VERY ATTENTIVE TO HIS CARE, CAN HAVE HALDOL OR ATIVAN TO HELP WITH RESTLESSNESS. COGNITION--ALERT, SOMEWHAT COGNITIVE BUT HAS MOMENTS OF CLARITY. SPECIAL NEEDS-- TURNS EVERY 2 HOURS BLEEDING-- WAS ON COUMADIN PRIOR TO BECOMING COMFORT CARES SENSORY IMPAIRMENTS/DENTAL NEEDS: HAS GLASSES, DOES NOT WEAR THEM NOW TEACHING NEEDS-- FAMILY SUPPORT INFECTION CONCERNS: RIGHT IJ, KWASI, HANDWASHING RISK FOR ELOPEMENT: NONE NEED FOR BED/MOVEMENT ALARM: WHEN IN BED DISMISSAL PLANS: Other: P: Current plan of care reviewed and updated RUTH ANN SOUZA
--- NOTE | 2016-07-01 04:03 | NUR ---
Significant Event: Patient is on comfort cares. Unable to eat or drink at this time & non-verbal. 4+ edema to upper and lower extremities. Repositioned frequently. Small urine output from gonsales. Family at bedside part of the evening. Receives IV morphine through R)IJ. Follow up:
--- NOTE | 2016-07-01 12:19 | NUR ---
75 y/o male admitted to TCU from acute care for end of life comfort cares. Sisters are at bedside. Palliative Care is following along with and Hospitalists. Patient is recieving IV/SQ medicines for pain control and symptom managmeent per nursing. patient has medicare and a supplemental policy. He was in the [facility] from 05-27-16 to 06-22-16 and then transferred to [facility]. He has a dx of severe sepsis, wide metastatic cancer with liver and pulmonary mets. He is a DNR. Palliative Care and the TCU team providing assistance to patient/family with comfort measures.
--- NOTE | 2016-07-01 14:02 | NUR ---
Significant Event: Continues on comfort cares. Generalized 4+ edema, wheeping extremeties. Centeno with no drainage noted today. Right IJ triple lumen intact, no complications. No s/s of need for prn morphine this shift, family and md request for no more than 1mg and as little is possible. None given so far this shift; No signs of restlessness or discomfort. Family at bedside. Repo every 2-3 hours per family preference. Follow up:
== END 2016-07-01 17:15 | disposition expired | DRG 872 ==
LOC: GSNF 09:55
PROVIDERS: ADMIT Internal Medicine
DX: A41.9 Sepsis, unspecified organism (principal); E44.0 Moderate protein-calorie malnutrition; I48.0 Paroxysmal atrial fibrillation; C78.7 Secondary malignant neoplasm of liver and intrahepatic bile duct; C34.90 Malignant neoplasm of unspecified part of unspecified bronchus or lung; E11.9 Type 2 diabetes mellitus without complications; Z79.01 Long term (current) use of anticoagulants; Z85.038 Personal history of other malignant neoplasm of large intestine; Z51.5 Encounter for palliative care; R65.20 Severe sepsis without septic shock; Z68.36 Body mass index [BMI] 36.0-36.9, adult; K76.89 Other specified diseases of liver
CPT/HCPCS: J1630; J2270